=== PATIENT | female | born 1950 | race African-American/Black ===

== ENCOUNTER 2021-03-15 13:40 | Outpatient (CLI) | payer MEDICARE, SELFPAY ==
--- NOTE | ~2021-03-15 | US_ITS ---
EXAMINATION: US thyroid DATE: 03/15/2021 14:11 INDICATION: Thyrotoxicosis TECHNIQUE: Multiple ultrasound images of the thyroid were obtained. COMPARISON: None. FINDINGS: The right thyroid lobe measures 5.2 x 2.4 x 2.0 cm. The left thyroid lobe measures 4.7 x 2.0 x 2.4 c m. Multiple bilateral cystic and predominantly cystic TI RADS 1 nodules in both thyroid lobes, the l argest on the right measuring 1.5 cm and the largest on the left measuring 2.0 cm. There are a few murphy bcentimeter solid hypoechoic TI RADS 4 nodules (moderately suspicious , FNA if >=1.5 cm, annual follo wup is >=1 cm). There is normal echotexture, echogenicity and vascular flow throughout the surroundin g thyroid gland. IMPRESSION: 1. Multinodular goiter with with multiple TI RADS 1 and a few subcentimeter TI RADS 4 nodules, none m eeting criteria for biopsy. Recommend annual ultrasound follow-up. Reviewed, dictated and finalized at location A. IMPRESSION: 1. Multinodular goiter with with multiple TI RADS 1 and a few subcentimeter TI RADS 4 nodules, none meeting criteria for biopsy. Recommend annual ultrasound f ollow-up.
== END 2021-03-15 13:41 | disposition home or self-care (01) ==
PROVIDERS: PCP Internal Medicine; Visit Provider Internal Medicine Endocrinology, Diabetes & Metabolism
DX: E05.90 Thyrotoxicosis, unspecified without thyrotoxic crisis or storm (principal); E04.2 Nontoxic multinodular goiter
CPT/HCPCS: 76536

== ENCOUNTER 2022-01-14 14:32 | Outpatient (CLI) | payer MEDICARE, SELFPAY ==
[2022-01-14 16:51] LABS: Free T4 Free Thyroxine 0.75 ng/mL (0.78-2.19)
[2022-01-17 05:39] LABS: Triiodothyronine T3 Free 2.5 pg/mL (2.3-4.2)
== END 2022-01-14 14:33 | disposition home or self-care (01) ==
LOC: ANHWCLAB 14:35
PROVIDERS: PCP Internal Medicine; Referring Provider Internal Medicine Endocrinology, Diabetes & Metabolism; Visit Provider Internal Medicine Endocrinology, Diabetes & Metabolism
DX: E04.1 Nontoxic single thyroid nodule (principal); E05.90 Thyrotoxicosis, unspecified without thyrotoxic crisis or storm
CPT/HCPCS: 36415; 84439; 84443; 84481